=== PATIENT | female | born 1980 | race Caucasian/White ===

== ENCOUNTER → 2023-12-05 | Outpatient (CLI) | payer OTHER ==
[~2023-12-05] VITALS: Ht 172.7 cm; Wt 108.0 kg
[2023-12-05] MEDS: albuterol 2.5 MG/3 ML nebule NEB ONE (14:39)
[2023-12-05 14:41] VITALS: PULSE 98; RESP 18; O2SAT 98
== END | disposition home or self-care (01) ==
LOC: RT 14:04
PROVIDERS: ATTEND Chiropractor
DX: J45.909 Unspecified asthma, uncomplicated (principal)
CPT/HCPCS: 71046; 94060; 94760

== ENCOUNTER 2024-04-15 08:43 | Outpatient (CLI) | payer OTHER ==
[~2024-04-15] VITALS: Ht 172.7 cm; Wt 77.1 kg
[2024-04-15 09:24] VITALS: PULSE 85; RESP 16; O2SAT 98
[2024-04-15] MEDS: albuterol 2.5 MG/3 ML nebule NEB ONE (09:24)
[2024-04-15 09:36] VITALS: PULSE 91; RESP 18
== END 2024-04-15 23:59 | disposition home or self-care (01) ==
LOC: RT 08:43
PROVIDERS: ATTEND Chiropractor
DX: J45.909 Unspecified asthma, uncomplicated (principal)
CPT/HCPCS: 71046; 94060; 94760

== ENCOUNTER 2024-08-02 08:27 | Outpatient (CLI) | payer OTHER | END 2024-08-02 23:59 | disposition home or self-care (01) | LOC: RAD 08:27 | PROVIDERS: ATTEND Chiropractor | DX: M13.80 Other specified arthritis, unspecified site (principal) | CPT/HCPCS: 73130; 73630 ==